=== PATIENT | female | born 1995 ===

== ENCOUNTER 2021-07-27 11:00 | Inpatient (IN) | payer OTHER ==
[~2021-07-27] VITALS: Ht 160 cm; Wt 63.5 kg
[2021-07-27] MEDS ORDERED: PREDNISONE PO (12:39)
[2021-08-09] MEDS ORDERED: LANSOPRAZOLE30 MG (10:52)
[2021-08-09] MEDS ORDERED: RABEPRAZOLE SOD20 MG (10:53)
[2021-08-09] MEDS ORDERED: PREDNISONE20 M1 (10:53)
[2021-08-09] MEDS ORDERED: BUDESONIDE EC3 MG (10:53)
[2021-08-09] MEDS ORDERED: PREDNISONE10 M2 (10:53)
[2021-08-09] MEDS ORDERED: GLYCOPYRROLATE2 MG (10:53)
[2021-08-09] MEDS ORDERED: FAMOTIDINE20 MG (10:53)
[2021-08-09] MEDS ORDERED: PANTOPRAZOLE SO40 MG (10:53)
[2021-08-12] MEDS ORDERED: HYOSCYAMINE0.125 M1 SL (11:55)
[2021-08-12] MEDS ORDERED: OXYC1TAB9 PO (11:55)
[2021-08-12] MEDS ORDERED: INTESTINEX680 M1 PO (11:56)
== END 2021-08-12 14:20 | disposition home or self-care (01) | DRG 330 ==
LOC: SURH 08-02 07:00 → O/R 08-09 05:49 → SURH 08-09 13:28 → O/R 08-11 15:40 → SURH 08-11 15:43
PROVIDERS: Obstetrics & Gynecology Gynecology; ADMIT Surgery; ATTEND Surgery
PROC: 0D1B4Z4 Bypass Ileum to Cutaneous, Percutaneous Endoscopic Approach (ICD-10-PCS; 2021-08-09)
PROC: 0UT74ZZ Resection of Bilateral Fallopian Tubes, Percutaneous Endoscopic Approach (ICD-10-PCS; 2021-08-09)
PROC: 0UT14ZZ Resection of Left Ovary, Percutaneous Endoscopic Approach (ICD-10-PCS; 2021-08-09)
PROC: 07BC4ZX Excision of Pelvis Lymphatic, Percutaneous Endoscopic Approach, Diagnostic (ICD-10-PCS; 2021-08-09)
PROC: 0DBN4ZZ Excision of Sigmoid Colon, Percutaneous Endoscopic Approach (ICD-10-PCS; principal; 2021-08-09 18:00)
PROC: 0DTP4ZZ Resection of Rectum, Percutaneous Endoscopic Approach (ICD-10-PCS; 2021-08-09 18:00)
DX: N80.5 Endometriosis of intestine (principal); K50.912 Crohn's disease, unspecified, with intestinal obstruction

== ENCOUNTER 2021-08-27 08:47 | Emergency (ER) | payer OTHER ==
[~2021-08-27] VITALS: Ht 157.5 cm; Wt 56.7 kg
[~2021-08-27 08:47] MED LIST: BUDESONIDE EC3 MG; FAMOTIDINE20 MG; GLYCOPYRROLATE2 MG; HYOSCYAMINE0.125 M1 SL; INTESTINEX680 M1 PO; LANSOPRAZOLE30 MG; OXYC1TAB9 PO; PANTOPRAZOLE SO40 MG; PREDNISONE PO; PREDNISONE10 M2; PREDNISONE20 M1; RABEPRAZOLE SOD20 MG
[2021-09-02] MEDS ORDERED: RAYOS5 MG PO (12:53)
== END 2021-08-27 15:55 | disposition home or self-care (01) ==
LOC: ER 08:47
DX: N94.0 Mittelschmerz (principal); R10.2 Pelvic and perineal pain

== ENCOUNTER → 2021-09-02 | Emergency (ER) | payer OTHER ==
[~2021-09-02] VITALS: Ht 160 cm; Wt 65.8 kg
[~2021-09-02] MED LIST changes: +RAYOS5 MG PO
== END | disposition home or self-care (01) ==
LOC: ER 12:43
DX: K52.89 Other specified noninfective gastroenteritis and colitis (principal); E86.0 Dehydration